=== PATIENT | female | born 1970 | race African-American/Black ===

== ENCOUNTER 2016-05-11 07:43 | Emergency (ER) | payer OTHER ==
[~2016-05-11] VITALS: Ht 167.6 cm; Wt 75.6 kg
[2016-05-11 07:44] VITALS: TEMP 37; Ht 167.6 cm; Wt 75.6 kg
[2016-05-11] MEDS ORDERED: SODIUM CHLORIDE 0.9% 1000ML 1,000 ML IV STA (08:09)
--- NOTE | 2016-05-11 08:10 | EMERGENCY ROOM VISIT NOTE ---
History Report prepared by Dimas: Rosendo Garcia Under the Supervision of: Dr. Cayetano Phillips M.D. First contact with patient: 07:48 Chief Complaint: DIZZY Stated Complaint: LIGHTHEADED, PVC'S Nursing Triage Summary: Pt c/o dizziness and heart palpitations. "It has been going on for a few weeks. I have been trying to fight it. They just increased my thyroid medicine." per pt. History of Present Illness The patient is a 46 year old female who presents to the Emergency Room with complaints of recurrent dizziness for the past three weeks. The dizziness is often present when she gets up in the morning and usually improves throughout the day. The patient also notes intermittent palpitations. She usually has the palpitations after taking her thyroid medication. The patient notes that her thyroid medication dosage was increased three weeks ago prior to the onset of her symptoms. The patient had thrush several weeks ago, and was started on an anti-fungal at urgent care. The thrush is clearing. The patient denies abdominal pain. She denies the possibility of . Source of History: patient Onset: three weeks Position: other (global) Quality: other (dizziness) Timing: other (recurrent) Associated Symptoms: No abdominal pain Review of Systems See HPI for pertinent positives & negatives. A total of 10 systems reviewed and were otherwise negative. Past Medical & Surgical Medical Problems: (1) Thrush (2) Thyroid disease Family History Cancer Diabetes mellitus Heart disease Hypertension Lung disease Social History Smoking Status: Never Smoker Housing Status: lives with family Current/Historical Medications Scheduled Calcium Carbonate-Vitamin D (Calcium), Unknown Dose PO DAILY Cholecalciferol (Vitamin D), Unknown Dose PO DAILY Magnesium Oxide (Mag-Ox), Unknown Dose PO DAILY [T4+T3 Compound ], 1 TAB PO DAILY Allergies Coded Allergies: Levofloxacin (Unverified Allergy, Unknown, DEPLETED BODY OF ELECTROLYTES, 05/11/16) Physical Exam Vital Signs Date Time Temp Pulse Resp B/P Pulse Ox O2 Delivery O2 Flow Rate FiO2 05/11/16 09:48 62 16 107/60 99 Room Air 05/11/16 08:19 58 16 97/55 97 Room Air 74 98/59 80 97/64 05/11/16 08:17 99 Room Air 05/11/16 08:17 99 Room Air 05/11/16 07:44 37.0 77 16 111/75 97 Room Air Physical Exam GENERAL: Patient is a healthy-appearing well-nourished HEAD: Normocephalic atraumatic EYES: Ocular movements intact pupils equal and react to light OROPHARYNX mucous membranes are moist no exudates present no erythema or edema present NECK: Supple no nuchal rigidity CHEST: Good equal expansion LUNGS: Clear and equal to auscultation CARDIAC: Normal S1 and S2 ABDOMEN: Soft nontender no guarding BACK: No CVA tenderness EXTREMITIES: No pain upon palpation normal muscle strength in all groups no clubbing cyanosis or edema NEURO: Patient is following commands is answering questions appropriately. Alert and oriented x3 Cranial Nerves 2-12 grossly intact Medical Decision & Procedures Laboratory Results 05/11/16 07:55 Red Blood Count 4.98, Mean Corpuscular Volume 74.9, Mean Corpuscular Hemoglobin 25.7, Mean Corpuscular Hemoglobin Concent 34.3, Mean Platelet Volume 10.7, Neutrophils (%) (Auto) 55.1, Lymphocytes (%) (Auto) 38.2, Monocytes (%) (Auto) 5.5, Eosinophils (%) (Auto) 0.8, Basophils (%) (Auto) 0.2, Neutrophils # (Auto) 3.31, Lymphocytes # (Auto) 2.29, Monocytes # (Auto) 0.33, Eosinophils # (Auto) 0.05, Basophils # (Auto) 0.01 05/11/16 07:55 Test 05/11/16 07:55 05/11/16 09:25 White Blood Count 6.00 K/uL (4.8-10.8) Red Blood Count 4.98 M/uL (4.2-5.4) Hemoglobin 12.8 g/dL (12.0-16.0) Hematocrit 37.3 % (37-47) Mean Corpuscular Volume 74.9 fL (80-100) Mean Corpuscular Hemoglobin 25.7 pg (25-34) Mean Corpuscular Hemoglobin Concent 34.3 g/dl (32-36) Platelet Count 208 K/uL (130-400) Mean Platelet Volume 10.7 fL (7.4-10.4) Neutrophils (%) (Auto) 55.1 % Lymphocytes (%) (Auto) 38.2 % Monocytes (%) (Auto) 5.5 % Eosinophils (%) (Auto) 0.8 % Basophils (%) (Auto) 0.2 % Neutrophils # (Auto) 3.31 K/uL (1.4-6.5) Lymphocytes # (Auto) 2.29 K/uL (1.2-3.4) Monocytes # (Auto) 0.33 K/uL (0.11-0.59) Eosinophils # (Auto) 0.05 K/uL (0-0.5) Basophils # (Auto) 0.01 K/uL (0-0.2) RDW Standard Deviation 40.5 fL (36.4-46.3) RDW Coefficient of Variation 15.0 % (11.5-14.5) Immature Granulocyte % (Auto) 0.2 % Immature Granulocyte # (Auto) 0.01 K/uL (0.00-0.02) Neutrophils % (Manual) 51.8 % Lymphocytes % (Manual) 27.2 % Variant Lymphocytes % (manual) 17.5 % Monocytes % (Manual) 3.5 % Neutrophils # (Manual) 3.11 K/uL (1.4-6.5) Total Absolute Neutrophils 3.11 K/uL (1.4-6.5) Lymphocytes # (Manual) 1.63 K/uL (1.2-3.4) Absolute Variant Lymphocytes 1.05 K/uL Total Absolute Lymphocytes 2.68 K/uL (1.2-3.4) Monocytes # (Manual) 0.21 K/uL (0.11-0.59) Acanthocytes 1+ Anion Gap 8.0 mmol/L (3-11) Est Creatinine Clear Calc Drug Dose 85.8 ml/min Estimated GFR () 94.6 Estimated GFR (Non- 81.6 BUN/Creatinine Ratio 10.3 (10-20) Calcium Level 9.1 mg/dl (8.5-10.1) Total Bilirubin 0.5 mg/dl (0.2-1) Direct Bilirubin 0.1 mg/dl (0-0.2) Aspartate Amino Transf (AST/SGOT) 15 U/L (15-37) Alanine Aminotransferase (ALT/SGPT) 16 U/L (12-78) Alkaline Phosphatase 83 U/L (45-117) Total Protein 8.1 gm/dl (6.4-8.2) Albumin 3.5 gm/dl (3.4-5.0) Thyroid Stimulating Hormone (TSH) 0.595 uIu/ml (0.300-4.500) Free Thyroxine 1.06 ng/dl (0.80-1.60) Free Triiodothyronine 3.48 pg/ml (2.30-4.20) Urine Color YELLOW Urine Appearance CLEAR (CLEAR) Urine pH 7.0 (4.5-7.5) Urine Specific [place] 1.009 (1.000-1.030) Urine Protein NEG (NEG) Urine Glucose (UA) NEG (NEG) Urine Ketones NEG (NEG) Urine Occult Blood NEG (NEG) Urine Nitrite NEG (NEG) Urine Bilirubin NEG (NEG) Urine Urobilinogen NEG (NEG) Urine Leukocyte Esterase NEG (NEG) Labs reviewed by ED physician. Medications Administered Medications (Trade) Dose Ordered Sig/Joy Route Start Time Stop Time Status Last Admin Dose Admin Sodium Chloride (Nss 1000ml) 1,000 ml @ 999 mls/hr Q1H1M STAT IV 05/11/16 08:09 05/11/16 09:09 DC 05/11/16 08:09 999 MLS/HR ECG Indication: palpitations Rate (beats per minute): 73 Rhythm: normal sinus Findings: no acute ischemic change, no ectopy ED Course 0800: Past medical records reviewed. The patient was evaluated in room B6. A complete history and physical examination was performed. 0809: NSS 1000 ml @ 999 mls/hr. 0955: Discussed the findings with the patient. She verbalized understanding of the discharge instructions. The patient is ready for discharge. Medical Decision Differential diagnosis: Etiologies such as benign positional vertigo, dehydration, hypovolemia, anemia, tumor, infection, hypoglycemia, electrolyte abnormalities, cardiac sources, intracerebral event, toxicologic, neurologic, as well as others were entertained. His is a 46-year-old female who presents emergency department complaining of lightheadedness and dizziness along with PVCs that have been occurring since the patient's thyroid medication was increased. She has no complaints. I will note that the patient has normal thyroid stimulating hormone normal T3 1 normal free T4. In addition she does not have an elevation in her white blood count renal profile liver profile. I believe the patient as well as she can be safely discharged home for follow-up with her primary care physician. I did advise the patient to stop taking the extra dose of thyroid medication. Patient was in agreement with the treatment plan. Impression Primary Impression: Dizziness Scribe Attestation The scribe's documentation has been prepared under my direction and personally reviewed by me in its entirety. I confirm that the note above accurately reflects all work, treatment, procedures, and medical decision making performed by me. Departure Information Dispostion Home / Self-Care Referrals Atiya Olson M.D. (PCP) Forms HOME CARE DOCUMENTATION FORM, IMPORTANT VISIT INFORMATION, School Instructions, Work Instructions Patient Instructions Free T4, My [facility], Thyroid Role Additional Instructions You have been examined and treated today on an emergency basis only. This is not a substitute for, or an effort to provide, complete comprehensive medical care. It is impossible to recognize and treat all injuries or illnesses in a single emergency department visit. It is therefore important that you follow up closely with Dr Olson. Call as soon as possible for an appointment. Thank you for your time and consideration. I look forward to speaking with you again soon. Please don't hesitate to call us if you have any questions.
[2016-05-11 08:17] VITALS: O2SAT 99
[2016-05-11 08:22] LABS: BASO % 0.2 %; BASO ABS # 0.01 K/uL (0-0.2); EOS % 0.8 %; HEMATOCRIT 37.3 % (37-47); IG% 0.2 %; LYMPH % 38.2 %; LYMPH ABS # 2.29 K/uL (1.2-3.4); MEAN CELL VOLUME 74.9 fL (80-100); MEAN CORPUSCULAR HEMOGLOBIN 25.7 pg (25-34); MEAN CORPUSCULAR HGB CONC 34.3 g/dl (32-36); MEAN PLATELET VOLUME 10.7 fL (7.4-10.4); MONO % 5.5 %; NEUT % 55.1 %; PLATELET COUNT 208 K/uL (130-400); RED BLOOD COUNT 4.98 M/uL (4.2-5.4)
[2016-05-11] MEDS ORDERED: MAGN400T6 PO (08:27)
[2016-05-11] MEDS ORDERED: [UNRECOGNIZED DRUG - OTHER] PO (08:27)
[2016-05-11] MEDS ORDERED: CALC-51 PO (08:27)
[2016-05-11] MEDS ORDERED: COMPOUND PO (08:27)
[2016-05-11] MEDS ORDERED: CHOL400T PO (08:27)
[2016-05-11 08:40] LABS: BUN/CREATININE RATIO 10.3 (10-20); CALCIUM 9.1 mg/dl (8.5-10.1); CREATININE 0.86 mg/dl (0.60-1.20); POTASSIUM 3.6 mmol/L (3.5-5.1)
[2016-05-11 08:50] LABS: THYROID STIMULATING HORMONE 0.595 uIu/ml (0.300-4.500)
[2016-05-11 09:40] LABS: URINE APPEARANCE CLEAR (CLEAR); URINE BILIRUBIN NEG (NEG); URINE COLOR YELLOW; URINE NITRITE NEG (NEG); URINE SPECIFIC GRAVITY 1.009 (1.000-1.030); UROBILINOGEN NEG (NEG)
[2016-05-11 09:48] VITALS: BP 107/60; PULSE 62; O2SAT 99
[2016-05-11 09:52] LABS: MANUAL MICROSCOPIC REQUIRED? NO; REVIEW REQ? NO
[2016-05-11 10:02] LABS: ACANTHOCYTES 1+; COMPLETE YES; LYMPH ABS # 1.63 K/uL (1.2-3.4); LYMPHOCYTE % 27.2 %; NEUTROPHILS % 51.8 %; VARIANT LYM ABS # 1.05 K/uL; VARIANT LYMPHOCYTE % 17.5 %
== END 2016-05-11 10:18 | disposition home or self-care (01) ==
LOC: C.EDB 07:44
DX: R42 Dizziness and giddiness (principal); E03.9 Hypothyroidism, unspecified; Z83.3 Family history of diabetes mellitus; Z82.49 Family history of ischemic heart disease and other diseases of the circulatory system